=== PATIENT | male | born 1990 | race African-American/Black ===

== ENCOUNTER 2017-02-06 19:03 | Emergency (ER) | payer SELFPAY ==
[~2017-02-06] VITALS: Ht 182.9 cm; Wt 101.2 kg
[2017-02-06] MEDS ORDERED: NKM (19:17)
[2017-02-06 19:20] VITALS: BP 155/82
--- NOTE | 2017-02-06 19:25 | Emergency Room Report ---
History of Present Illness General Chief Complaint: General Complaint Source: Patient Present Illness HPI 26 -year-old male presents to the emergency department complaining of intermittent numbness to a localized portion of the left upper extremity x3 days. Patient denies trauma or fall, pain, rash, changes in skin color or temperature. Patient states that the distal portion of the arm is unaffected. Patient cannot recall what they're not certain positions elicit his symptoms. Patient denies history of neck injury, neck or back pain or sleeping abnormally. Patient denies fevers, chills, weakness. Denies significant past medical history. Denies gross loss of sensation or gross motor movements of the extremities, incontinence of bowel or bladder. Denies CP, Palpitations, LOC , AMS, dizziness, Changes in Vision, Sensation, or a sudden severe headache. Allergies: Coded Allergies: No Known Allergies (Unverified , 02/06/17) Patient History Past Medical History: see triage record Past Surgical History: none Pertinent Family History: none Immunizations: UTD Reviewed Nursing Documentation: PMH: Agreed, PSxH: Agreed Nursing Documentation-PMH Past Medical History: No Stated History Review of Systems All Other Systems: negative except mentioned in HPI Physical Exam Vital Signs Date Time Temp Pulse Resp B/P (MAP) Pulse Ox O2 Delivery O2 Flow Rate FiO2 02/06/17 19:11 98.1 80 16 155/82 100 Room Air Sp02 EP Interpretation: reviewed, normal General Appearance: no apparent distress, alert, GCS 15, non-toxic Head: normocephalic, atraumatic Eyes: bilateral eye normal inspection, bilateral eye PERRL ENT: hearing grossly normal, normal voice Neck: full range of motion, no bony tend, no carotid bruits, supple/symm/no masses Respiratory: lungs clear, normal breath sounds, speaking full sentences Cardiovascular #1: regular rate, rhythm, normal capillary refill Cardiovascular #2: 2+ radial (R), 2+ radial (L), 2+ dorsalis pedis (R) - post. tibialis, 2+ dorsalis pedis (L) - posterior tibialis Rectal: deferred Musculoskeletal: back normal, digits/nails normal, gait/station normal, normal range of motion, non-tender Neurologic: alert, oriented x3, responsive, motor strength/tone normal, DTRs symmetric, sensory intact, speech normal, no pronator, other - no evidence of neurological deficit, and no symptoms to suggest thrombolytic cause, pulses are equal bilaterally, DTRs are symmetrical. difficult to elicit symptoms patient has full range of motion of shoulder, elbow, neck. Motor strength is equal Psychiatric: judgement/insight normal, memory normal, mood/affect normal Skin: normal color, no rash, warm/dry, well hydrated Lymphatic: no adenopathy Medical Decision Making PA Attestation Dr. Palacios is my supervising Physician whom patient management has been discussed with. Diagnostic Impression: Primary Impression: Paresthesia of arm ER Course 26 -year-old male presents to the emergency department complaining of intermittent numbness to a localized portion of the left upper extremity x3 days. Patient denies trauma or fall, pain, rash, changes in skin color or temperature. Patient states that the distal portion of the arm is unaffected. Patient cannot recall what they're not certain positions elicit his symptoms. Patient denies history of neck injury, neck or back pain or sleeping abnormally. Patient denies fevers, chills, weakness. Denies significant past medical history. Denies gross loss of sensation or gross motor movements of the extremities, incontinence of bowel or bladder. Denies CP, Palpitations, LOC , AMS, dizziness, Changes in Vision, Sensation, or a sudden severe headache. Ddx considered but are not limited to uropathy, paresthesia, electrolyte imbalance, cardiac dysrhythmia, stroke, DVT, cyanocobalamin deficiency. nerve palsy, neuritis Vital signs: are WNL, pt. is afebrile H&PE are most consistent with Localized paresthesia most likely due to musculoskeletal cause, no evidence of neurological deficit, and no symptoms to suggest thrombolytic cause, pulses are equal bilaterally, DTRs are symmetrical. difficult to elicit symptoms patient has full range of motion of shoulder, elbow, neck. ORDERS: none required at this time, the diagnosis is clinical ED INTERVENTIONS: None required at this time. I do not suspect an emergent condition at this time. with current presentation pt. is stable for close outpatient follow up. D/w pt. to return to ED with worsening or new symptoms. - D/w pt. to follow up with Neurologist if conservative treatment does not relieve symptoms or for further evaluation. DISCHARGE: At this time pt. is stable for d/c to home. Will provide printed patient care instructions, and any necessary prescriptions. Care plan and follow up instructions have been discussed with the patient prior to discharge. Last Vital Signs Date Time Temp Pulse Resp B/P (MAP) Pulse Ox O2 Delivery O2 Flow Rate FiO2 02/06/17 19:11 98.1 80 16 155/82 100 Room Air Disposition: HOME, SELF-CARE Condition: Stable Scripts Naproxen* (NAPROSYN*) 500 Mg Tablet 500 MG ORAL TWICE A DAY for 10 Days, #20 TAB Prov: Mana Calvillo 02/06/17 Patient Instructions: Paresthesia Additional Instructions: Take medications as directed. Follow up with a Primary Care Provider in 3-5 days, even if your symptoms have resolved. If Symptoms persist recommend NEUROLOGY Specialist Evaluation. --Please review list of primary care clinics, if you do not already have a primary care provider Return sooner to ED if new symptoms occur, or current symptoms become worse. - Please note that this Emergency Department Report was dictated using [employer] maker technology software, occasionally this can lead to erroneous entry secondary to interpretation by the dictation equipment. Mana Calvillo Feb 06, 2017 19:25
[2017-02-06] MEDS ORDERED: NAPROSYN500 M1 ORAL (19:57)
[2017-02-06 20:20] VITALS: BP 155/82
== END 2017-02-06 20:20 | disposition home or self-care (01) ==
LOC: EMR 19:35
DX: R20.2 Paresthesia of skin (principal)
CPT/HCPCS: 99283